=== PATIENT | male | born 1985 | race Two or more races ===

== ENCOUNTER 2024-09-20 12:33 | Emergency (ER) | payer MEDICAID ==
[~2024-09-20] VITALS: Ht 182.9 cm; Wt 120.0 kg
[2024-09-20] MEDS: LORazepam 2MG/ML-1ML VIAL ONE (12:14)
[2024-09-20 12:55] VITALS: PULSE 87; RESP 22; O2SAT 92
[2024-09-20] MEDS: levETIRAcetam 1000 mg/100ml 100 ML IV ONE (13:26)
[2024-09-20] MEDS: LORazepam 2MG/ML-1ML VIAL IV ONE (13:26)
--- NOTE | 2024-09-20 13:43 | ED.PDOC ---
HPI (NEURO) HPI Comments 39y M who presents to the ED via EMS for chief complaint of seizure. Per pt's sister, pt was playing with his nephew and suddenly while attempting to pick him up, pt started to develop seizure- like activity and pts nephew screamed for help and pt sister came to the scene. Pt sister noted pt fell backwards hit his head on cement with noted loss of consciousness and had tonic-clonic activity for approx 1 minute. Pt sister noted occipital head trauma after the seizure. EMS arrived on scene and placed pt on c-collar with noted post-ictal state and Iv placed with fluids initiated. Pt now in the ED, alert and oriented and able to answer all questions. Pt notes he does have history of seizures and his Keppra dosage was recently increased from 750mg to 1000mg. Pt in the ED, with bleeding controlled from posterior head and oral trauma with bleeding controlled. Pt in the ED, has temp of 98.6 F, heart rate 87, RR 18, bp of 116/77 and 02 sat of 98% on oxygen. Pt otherwise denies any other symptoms at this time. Chief Complaint: Seizure Time Seen by MD: 13:38 Primary Care Provider: UNKNOWN Reviewed Notes: Doorshaker Notes Information Source: Patient, Relative (sister) Mode of Arrival: EMS Brought in by: EMS Past Medical History PAST MEDICAL HISTORY: Seizures Surgical History: Denies all surgeries Family History Family History: No family hx of DM, Unknown Social History Smoker: Non-Smoker Alcohol: Denies ETOH Use Drugs: Marijuana Lives In: Home Constitutional: denies: chills, diaphoresis, fatigue, fever, malaise, sweats, weakness, others EENTM: denies: blurred vision, double vision, ear bleeding, ear discharge, ear drainage, ear pain, ear ringing, eye pain, eye redness, hearing loss, mouth pain, mouth swelling, nasal discharge, nose bleeding, nose congestion, nose pain, photophobia, tearing, throat pain, throat swelling, voice changes, others Respiratory: denies: cough, hemoptysis, orthopnea, SOB at rest, shortness of breath, SOB with excertion, stridor, wheezing, others Cardiovascular: denies: chest pain, dizzy spells, diaphoresis, Dyspnea on exertion, edema, irregular heart beat, left arm pain, lightheadedness, palpitations, PND, syncope, others Gastrointestinal: denies: abdomen distended, abdominal pain, blood streaked bowels, constipated, diarrhea, dysphagia, difficulty swallowing, hematemesis, melena, nausea, poor appetite, poor fluid intake, rectal bleeding, rectal pain, vomiting, others Genitourinary: denies: burning, dysuria, flank pain, frequency, hematuria, incontinence, penile discharge, penile sore, pain, testicle pain, testicle swelling, urgency, others Neurological: reports: seizure; denies: dizziness, fainting, headache, left sided numbness, left sided weakness, numbness, paresthesia, pre-existing deficit, right sided numbness, right sided weakness, speech problems, tingling, tremors, weakness, others Musculoskeletal: denies: back pain, gout, joint pain, joint swelling, muscle pain, muscle stiffness, neck pain, others Integumetry: reports: bruises (posterior head), others (oral trauma); denies: change in color, change in hair/nails, dryness, laceration, lesions, lumps, rash, wounds Allergic/Immunocompromised: denies: Difficulty Healing, Frequent Infections, Hives, Itching, others Hematologic/Lymphatic: denies: anemia, blood clots, easy bleeding, easy bruising, swollen glands, others Endocrine: denies: excessive hunger, excessive sweating, excessive thirst, excessive urination, flushing, intolerance to cold, intolerance to heat, unexplained weight gain, unexplained weight loss, others Psychiatric: denies: anxiety, bipolar disorder, depression, hopeless, panic disorder, schizophrenia, sleepless, suicidal, others All Other Systems: Reviewed and Negative Physical Exam General Appearance: No Apparent Distress HEENT: PERRL/EOMI, Other (Right occipito-parietal soft tissue swelling/tenderness/abrasion with dried blood on scalp. No acute bleeding.) Neck: Full Range of Motion, Non-Tender, Normal Inspection, Supple Respiratory: Lungs Clear, No Accessory Muscle Use, No Respiratory Distress, Normal Breath Sounds Cardiovascular: No Edema, No JVD, Regular Rate/Rhythm Breast Exam: Deferred Gastrointestinal: Non Tender, Soft Genitalia: Deferred Pelvic: Deferred Rectal: Deferred Extremities: Normal inspection, Normal range of motion, Non-tender, No pedal edema Neurologic: Alert (Oriented x4), No Motor Deficits, Normal Affect, Normal Mood, No Sensory Deficits, Other (No gross focal deficit) Cerebellar Function: NOT DONE Reflexes: NOT DONE Skin: Dry, Normal Color, Warm, Other (Right occipito-parietal soft tissue swelling/tenderness/abrasion with dried blood on scalp. No acute bleeding.) Lymphatic: NOT DONE Was a procedure done? Was a procedure done?: No Differential Diagnosis (SZ) Seizure: Psychogenic Seizure, Alcohol Withdrawl, Anticonvulsant Withdrawl, Closed Head Injury, CVA/TIA, Drug Ingestion, Hyponatremia, Hypoxemia, Idiopathic, Syncope, Encephalopathy, Epilepsy-Break Through, Epilepsy-Status Headache: Cluster, Epidural Hemorrhage, Intracerebral Hemorrhage, Subarachnoid Hemorrhage, Subdural Hemorrhage X-Ray, Labs, Meds, VS Vital Signs Date Time Temp Pulse Resp B/P (MAP) Pulse Ox O2 Delivery O2 Flow Rate FiO2 09/20/24 18:39 108 23 107/64 (78) 94 09/20/24 16:00 102 23 109/32 (57) 96 09/20/24 15:00 110 22 117/64 (81) 92 09/20/24 12:56 98.6 87 18 116/77 (90) 93 98.6 09/20/24 12:55 87 22 92 Room Air* 0 21 09/20/24 12:40 98.0 108 18 123/72 (89) 98 Lab Test 09/20/24 15:09 09/20/24 13:39 Range/Units Troponin I High Sensitivity 33 13 </=54 ng/L White Blood Count 9.2 4.4-10.8 10^3/uL Red Blood Count 5.61 4.5-5.90 10^6/uL Hemoglobin 17.1 13.5-17.5 g/dL Hematocrit 50.6 41.0-53.0 % Mean Corpuscular Volume 90.2 80.0-100.0 fL Mean Corpuscular Hemoglobin 30.4 28.0-32.0 pg Mean Corpuscular Hemoglobin Concent 33.7 32.0-36.0 g/dL Red Cell Distribution Width 13.2 11.8-14.3 % Platelet Count 247 140-450 10^3/uL Mean Platelet Volume 7.8 6.9-10.8 fL Neutrophils (%) (Auto) 79.0 37.0-80.0 % Lymphocytes (%) (Auto) 12.0 10.0-50.0 % Monocytes (%) (Auto) 8.1 0.0-12.0 % Eosinophils (%) (Auto) 0.3 0.0-7.0 % Basophils (%) (Auto) 0.6 0.0-2.0 % Neutrophils # (Auto) 7.2 1.6-8.6 10 ^3/uL Lymphocytes # (Auto) 1.1 0.4-5.4 10 ^3/uL Monocytes # (Auto) 0.7 0-1.3 10 ^3/uL Eosinophils # (Auto) 0 0-0.8 10 ^3/uL Basophils # (Auto) 0.1 0-0.2 10 ^3/uL Nucleated Red Blood Cells 0.2 % Sodium Level 144 136-145 mmol/L Potassium Level 4.1 3.5-5.1 mmol/L Chloride Level 107 98-107 mmol/L Carbon Dioxide Level 15 L 20-31 mmol/L Anion Gap 22 H 5-15 Blood Urea Nitrogen 12 9-23 mg/dL Creatinine 1.30 0.700-1.30 mg/dL Glomerular Filtration Rate Calc 73 >90 mL/min BUN/Creatinine Ratio 9.2 L 10.0-20.0 Serum Glucose 121 H 74-106 mg/dL Calcium Level 10.1 8.7-10.4 mg/dL B-Type Natriuretic Peptide 21.02 0-100 pg/mL Current Medications Medications (Trade) Dose Ordered Sig/Alanna Route Start Time Stop Time Status Last Admin Lorazepam (Ativan Inj) 2 mg ONCE ONCE IV 09/20/24 13:15 09/20/24 13:16 DC 09/20/24 13:26 Levetiracetam 100 ml @ 400 mls/hr ONCE ONCE IV 09/20/24 13:15 09/20/24 13:29 DC 09/20/24 13:[address] [address] Ph: [phone] DIAGNOSTIC IMAGING Diagnostic Imaging Report : [id number] Signed PATIENT: JOSLYN NEAL ACCT: [id number] UNIT: [id number] : 1985 LOC: ER ROOM / BED: / AGE / SEX: 39 / M ADM STATUS: REG ER SERVICE 1307 ORDERING PHYSICIAN: SARITA AZUL MD PROCEDURE(s): HWOCT - HEAD WITHOUT CONTRAST REASON: head n/v ORDER NUMBER(s): [id number], ACCESSION NUMBER(s): [id number] EXAM: CT HEAD WITHOUT CONTRAST HISTORY: head n/v COMPARISON: None TECHNIQUE: Axial images were obtained and reformatted in coronal and sagittal p lanes. All CT scans at this medical facility are performed using dose modulation techniques as appropriate to a performed exam including the following: Automated exposure control was utilized; adjustment of the MA and/or KV according to patient size; and use of iterative reconstruction technique. CT Dose: CTDI volume is 68, 28 mGy. Dose-length product is 2411.4 mGy*cm FINDINGS: Supratentorial Region: No evidence for large acute territorial ischemia. No intracranial hemorrhage is noted. Posterior Fossa: No acute abnormality. Brainstem: Unremarkable. Sellar/Suprasellar Region: Unremarkable. Ventricles, Cisterns, Sulci: Age-appropriate. Orbits: Unremarkable. Paranasal Sinuses: Trace fluid in the left maxillary sinus. Mild ethmoid sinus mucosal thickening noted. Mastoid Air Cells: Unremarkable. Vasculature: Unremarkable. Bones/Soft Tissues: No acute osseous abnormality. Right paramedian parietal scalp hematoma. Other: None. IMPRESSION: 1. No acute intracranial abnormality. 2. Moderate right parietal scalp hematoma without underlying calvarial fracture. ATED BY: KENA WHITLEY MD DICTATED DATE/TIME: 09/20/241415 SIGNED BY: KENA WHITLEY MD SIGNED DATE/TIME: 09/20/24 141 CC: [place] [id number] Ph: [phone] DIAGNOSTIC IMAGING Diagnostic Imaging Report : [id number] Signed PATIENT: JOSLYN NEAL ACCT: [id number] UNIT: [id number] : 1985 LOC: ER ROOM / BED: / AGE / SEX: 39 / M ADM STATUS: REG ER SERVICE 1307 ORDERING PHYSICIAN: SARITA AZUL MD PROCEDURE(s): CXRP - CHEST PORTABLE REASON: sz ORDER NUMBER(s): [id number], ACCESSION NUMBER(s): [id number] CHEST RADIOGRAPH Indication: mena Technique: Single frontal view of the chest was obtained Comparison: None FINDINGS: Lines and Tubes: None Lungs: No focal consolidation. Left lower lung field visualized in a limited manner. Pleura: No effusion. No pneumothorax. Cardiomediastinal contours: Unremarkable Bones: No acute osseous abnormality. IMPRESSION: 1. No acute cardiopulmonary disease. ATED BY: ELSY FARIA Jr., DO DICTATED DATE/TIME: 09/20/241400 SIGNED BY: ELSY FARIA Jr., SIGNED DATE/TIME: 09/20/241400 CC: [place] [id number] Ph: [phone] DIAGNOSTIC IMAGING Diagnostic Imaging Report : [id number] Signed PATIENT: JOSLYN NEAL ACCT: [id number] UNIT: [id number] : 1985 LOC: ER ROOM / BED: / AGE / SEX: 39 / M ADM STATUS: REG ER SERVICE 1307 ORDERING PHYSICIAN: SARITA AZUL MD PROCEDURE(s): CS2 - CERVICAL WITHOUT CONTRAST REASON: sz ORDER NUMBER(s): [id number], ACCESSION NUMBER(s): [id number] EXAM: CT CERVICAL WITHOUT CONTRAST INDICATION: sz EXAM DATE: 09/20/2024 01:41 PM COMPARISON: None TECHNIQUE: Multiple axial CT images of the cervical spine were obtained using bone algorithm. Sagittal and coronal reformatting was done. Bone and soft tissue windows were reviewed. Radiation Dose Information: CT Dose: CTDI volume is 68.13 mGy. Dose-length product is 2411.37 mGy*cm FINDINGS: The cervical alignment is intact. No acute cervical spine fracture is identified. The vertebral body heights are intact. No suspicious osseous lesions are identified. No significant degenerative changes are identified. No significant spinal or neural foraminal stenosis There is no prevertebral soft tissue swelling. Lung apices are clear. IMPRESSION: 1. No evidence of acute cervical spine fracture or traumatic malalignment. All CT scans at this medical facility are performed using dose modulation techniques as appropriate to a performed exam including the following: Automated exposure control was utilized; adjustment of the MA and/or KV according to patient size; and use of iterative reconstruction technique. ATED BY: ALICIA BRENNAN MD DICTATED DATE/TIME: 09/20/241424 SIGNED BY: ALICIA BRENNAN MD SIGNED DATE/TIME: 09/20/241424 CC: X-Ray, Labs, Meds, VS Comment 39-year-old male with a history of seizure disorder brought in by EMS after a seizure and fall with occipital head injury. Patient had another seizure shortly after arrival in the ED, resolved with IV Ativan Vital signs remarkable for heart rate 108 Exam remarkable for right occipito-parietal scalp soft tissue tenderness, soft tissue swelling, abrasion and dried blood. No acute bleeding Rhythm strip independently interpreted by me: Sinus tach, rate 108, no ectopy. CT head IMPRESSION: 1. No acute intracranial abnormality. 2. Moderate right parietal scalp hematoma without underlying calvarial fracture. CT C-spine IMPRESSION: 1. No evidence of acute cervical spine fracture or traumatic malalignment. Chest x-ray IMPRESSION: 1. No acute cardiopulmonary disease. CBC unremarkable, metabolic panel remarkable for CO2 15, 2 serial troponins negative, Patient treated with the following in the ED: 1 L 0.9 normal saline IV bolus, Ativan 2 mg IV, Keppra 1 g IV, Toradol 30 mg IV On re-evaluation, patient is resting comfortably with stable vitals. Pain has improved. He is neurologically intact. Hospitalization was considered, however patient had no further seizure activity and had rapid improvement of his symptoms with treatment in the ED. I no longer feel hospitalization is necessary. Patient appears stable for discharge with close outpatient follow-up with his neurologist. Rx ibuprofen, bacitracin Time of 1ST Reevaluation: 14:10 Reevaluation 1ST: Unchanged Time of 2ND Reevaluation: 20:21 Reevaluation 2ND: Improved Patient Education/Counseling: Diagnosis, Treatment Family Education/Counseling: Diagnosis, Treatment Additional Information -Reviewed patient's previous visit(s): - The following tests were ordered, and results were reviewed by me: tropx2, cbc, bnp, chest x-ray, ua, bmp, ekg x1, ct head w/o contrast, ct cervical w/0 contrast, - I reviewed and agreed with the following test results read by other provider: radiologist - I discussed treatments and results with medical personnel and: patient and pt sister Comprehensive systems review obtained and negative except for what is stated in the HPI. Departure 1 Departure Time of Disposition: 20:21 Impression: Primary Impression: Seizure Additional Impression: Minor head injury Qualified Codes: S09.90XA - Unspecified injury of head, initial encounter Disposition: HOME / SELF CARE / HOMELESS Condition: Stable Additional Instructions: Your blood tests were unremarkable. Your head CT showed swelling on the back of your scalp, however there was no skull fracture or brain injury seen. Please see the report below. The CT of your cervical spine was unremarkable. Your chest x-ray was unremarkable. I have prescribed medication for pain and an antibiotic ointment. Follow-up with your neurologist in 1-2 days. Continue current medications as directed for now. [place] [id number] Ph: [phone] DIAGNOSTIC IMAGING Diagnostic Imaging Report : [id number] Signed PATIENT: JOSLYN NEAL ACCT: [id number] UNIT: [id number] : 1985 LOC: ER ROOM / BED: / AGE / SEX: 39 / M ADM STATUS: REG ER SERVICE 1307 ORDERING PHYSICIAN: SARITA AZUL MD PROCEDURE(s): HWOCT - HEAD WITHOUT CONTRAST REASON: head n/v ORDER NUMBER(s): [id number], ACCESSION NUMBER(s): [id number] EXAM: CT HEAD WITHOUT CONTRAST HISTORY: head n/v COMPARISON: None TECHNIQUE: Axial images were obtained and reformatted in coronal and sagittal planes. All CT scans at this medical facility are performed using dose modulation techniques as appropriate to a performed exam including the following: Automated exposure control was utilized; adjustment of the MA and/or KV according to patient size; and use of iterative reconstruction technique. CT Dose: CTDI volume is 68, 28 mGy. Dose-length product is 2411.4 mGy*cm FINDINGS: Supratentorial Region: No evidence for large acute territorial ischemia. No intracranial hemorrhage is noted. Posterior Fossa: No acute abnormality. Brainstem: Unremarkable. Sellar/Suprasellar Region: Unremarkable. Ventricles, Cisterns, Sulci: Age-appropriate. Orbits: Unremarkable. Paranasal Sinuses: Trace fluid in the left maxillary sinus. Mild ethmoid sinus mucosal thickening noted. Mastoid Air Cells: Unremarkable. Vasculature: Unremarkable. Bones/Soft Tissues: No acute osseous abnormality. Right paramedian parietal scalp hematoma. Other: None. IMPRESSION: 1. No acute intracranial abnormality. 2. Moderate right parietal scalp hematoma without underlying calvarial fracture. e-Prescriptions Bacitracin (Bacitracin Oint) 1 Applic Ap 1 APPLIC TOP TID, #30 GRAMS Applied to wound on scalp until healed Prov: SARITA AZUL MD 09/20/24 Ibuprofen Micronized (Ibuprofen) 800 Mg Tab 800 MG PO Q8HPRN PRN, #30 TAB Prn pain. Take with food. Prov: SARITA AZUL MD 09/20/24 Discharged With: Relative Critical Care Note Critical Care Time?: No Stability Stability form required: No Heart Score Heart Score: Heart Score Response (Comments) Value History N/A 0 EKG N/A 0 Age N/A 0 Risk Factors N/A 0 Troponin N/A 0 Total 0 I personally scribed for SARITA AZUL MD) on 09/20/24 at 13:43. Electronically submitted by Jose Alfredo Baires ([email or web address]). I personally scribed for SARITA AZUL MD) on 09/20/24 at 14:39. Electronically submitted by Jose Alfredo Baires ([email or web address]). SARITA AZUL MD Sep 20, 2024 13:43
[2024-09-20 13:51] LABS: Basophils # (auto) 0.1 10 ^3/uL (0-0.2); Basophils % (auto) 0.6 % (0.0-2.0); Eosinophils # (auto) 0 10 ^3/uL (0-0.8); Eosinophils % (auto) 0.3 % (0.0-7.0); Hematocrit 50.6 % (41.0-53.0); Hemoglobin 17.1 g/dL (13.5-17.5); Lymphocytes # (auto) 1.1 10 ^3/uL (0.4-5.4); Mean Corpuscular Hemoglobin 30.4 pg (28.0-32.0); Mean Corpuscular Hgb Conc. 33.7 g/dL (32.0-36.0); Mean Corpuscular Volume 90.2 fL (80.0-100.0); Monocytes # (auto) 0.7 10 ^3/uL (0-1.3); Monocytes % (auto) 8.1 % (0.0-12.0); Neutrophils # (auto) 7.2 10 ^3/uL (1.6-8.6); Nucleated Red Blood Cells % 0.2 %; Platelet Count (auto) 247 10^3/uL (140-450); Red Blood Cells 5.61 10^6/uL (4.5-5.90); Red Cell Distribution Width 13.2 % (11.8-14.3); White Blood Cell 9.2 10^3/uL (4.4-10.8)
[2024-09-20 13:58] LABS: Chloride 107 mmol/L (98-107); Potassium 4.1 mmol/L (3.5-5.1); Sodium 144 mmol/L (136-145)
[2024-09-20 13:59] LABS: Anion Gap 22 (5-15); Calcium 10.1 mg/dL (8.7-10.4)
[2024-09-20 14:00] LABS: Carbon Dioxide 15 mmol/L (20-31)
--- NOTE | 2024-09-20 14:03 | DVH ---
CHEST RADIOGRAPH Indication: sz Technique: Single frontal view of the chest was obtained Comparison: None FINDINGS: Lines and Tubes: None Lungs: No focal consolidation. Left lower lung field visualized in a limited manner. Pleura: No effusion. No pneumothorax. Cardiomediastinal contours: Unremarkable Bones: No acute osseous abnormality. IMPRESSION: 1. No acute cardiopulmonary disease.
[2024-09-20 14:04] LABS: BUN/Creatinine Ratio 9.2 (10.0-20.0); Blood Urea Nitrogen 12 mg/dL (9-23)
[2024-09-20 14:13] LABS: Glucose 121 mg/dL (74-106)
--- NOTE | 2024-09-20 14:18 | DVH ---
EXAM: CT HEAD WITHOUT CONTRAST HISTORY: head n/v COMPARISON: None TECHNIQUE: Axial images were obtained and reformatted in coronal and sagittal planes. All CT scans at this medical facility are performed using dose modulation techniques as appropriate t o a performed exam including the following: Automated exposure control was utilized; adjustment of th e MA and/or KV according to patient size; and use of iterative reconstruction technique. CT Dose: CTDI volume is 68, 28 mGy. Dose-length product is 2411.4 mGy*cm FINDINGS: Supratentorial Region: No evidence for large acute territorial ischemia. No intracranial hemorrhage is noted. Posterior Fossa: No acute abnormality. Brainstem: Unremarkable. Sellar/Suprasellar Region: Unremarkable. Ventricles, Cisterns, Sulci: Age-appropriate. Orbits: Unremarkable. Paranasal Sinuses: Trace fluid in the left maxillary sinus. Mild ethmoid sinus mucosal thickening no penny. Mastoid Air Cells: Unremarkable. Vasculature: Unremarkable. Bones/Soft Tissues: No acute osseous abnormality. Right paramedian parietal scalp hematoma. Other: None. IMPRESSION: 1. No acute intracranial abnormality. 2. Moderate right parietal scalp hematoma without underlying calvarial fracture.
--- NOTE | 2024-09-20 14:27 | DVH ---
EXAM: CT CERVICAL WITHOUT CONTRAST INDICATION: sz EXAM DATE: 09/20/2024 01:41 PM COMPARISON: None TECHNIQUE: Multiple axial CT images of the cervical spine were obtained using bone algorithm. Sagitta l and coronal reformatting was done. Bone and soft tissue windows were reviewed. Radiation Dose Information: CT Dose: CTDI volume is 68.13 mGy. Dose-length product is 2411.37 mGy*cm FINDINGS: The cervical alignment is intact. No acute cervical spine fracture is identified. The vertebral body heights are intact. No suspicious osseous lesions are identified. No significant degenerative changes are identified. No significant spinal or neural foraminal stenosi s There is no prevertebral soft tissue swelling. Lung apices are clear. IMPRESSION: 1. No evidence of acute cervical spine fracture or traumatic malalignment. All CT scans at this medical facility are performed using dose modulation techniques as appropriate t o a performed exam including the following: Automated exposure control was utilized; adjustment of th e MA and/or KV according to patient size; and use of iterative reconstruction technique.
[2024-09-20 20:00] VITALS: BP 112/66; PULSE 99; RESP 17; TEMP 98; O2SAT 95
[2024-09-20] MEDS ORDERED: BAC09TP TOP (20:25)
[2024-09-20] MEDS ORDERED: IBUP-1455 PO (20:25)
[2024-09-20] MEDS: SODIUM CHLORIDE 0.9% 1,000 ML IV ONE (20:37)
[2024-09-20] MEDS: KETOROLAC TROMETH 30 MG/ML 1ML VIAL IV ONE (20:37)
== END 2024-09-20 21:33 | disposition home or self-care (01) ==
LOC: ER 12:33 → EDBD 12:33 → ER 21:32
DX: S09.8XXA Other specified injuries of head, initial encounter (principal); R56.9 Unspecified convulsions; F12.90 Cannabis use, unspecified, uncomplicated; W18.39XA Other fall on same level, initial encounter; Y93.89 Activity, other specified; Y92.89 Other specified places as the place of occurrence of the external cause; Y99.8 Other external cause status
CPT/HCPCS: 36415; 70450; 71045; 72125; 80048; 83880; 84484; 85025; 96361; 96365; 96375; 99285; J1953; J2060; J7030; 82947